=== PATIENT | male | born 2000 | race Asian ===

== ENCOUNTER 2020-06-17 18:58 | Emergency (ER) | payer OTHER ==
[~2020-06-17] VITALS: Ht 185.4 cm; Wt 87.3 kg
[2020-06-17 20:15] VITALS: BP 130/77
[2020-06-17] MEDS ORDERED: TETRACAINE 0.5% OPHTH SOLUTION 4ML BOTTLE. OD ONE (22:00)
[2020-06-17] MEDS ORDERED: FLUORESCEIN OPHTH TEST STRIP. OD ONE (22:00)
[2020-06-17] MEDS ORDERED: ERYT1OIN6 EACHEYE (22:17)
--- NOTE | 2020-06-17 22:17 | PHYS DOC ---
Past Medical History Past Medical History: No Pertinent History Past Surgical History: No Surgical History Smoking Status: Never Smoker Alcohol Use: None General Adult EDM: Chief Complaint: EYE PROBLEMS HPI: HPI: Patient is a 20 year old male who presents to the ED today complaining of chemical burn to the right eye. 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 Patient does not remember the name of the agent. He states his right eye is irritated. Patient is Chukese speaking and interpretation is provided by family. Denies any vision loss. Review of Systems: Review of Systems: Constitutional: Denies fever or chills. [] Eyes: Reports right eye irritation. Denies change in visual acuity. [] Musculoskeletal: Denies back pain or joint pain. [] Integument: Denies rash. [] Neurologic: Denies headache, focal weakness or sensory changes. [] Psychiatric: Denies depression or anxiety. [] Heart Score: Risk Factors: Risk Factors: DM, Current or recent (<one month) smoker, HTN, HLP, family history of CAD, obesity. Risk Scores: Score 0 - 3: 2.5% MACE over next 6 weeks - Discharge Home Score 4 - 6: 20.3% MACE over next 6 weeks - Admit for Clinical Observation Score 7 - 10: 72.7% MACE over next 6 weeks - Early Invasive Strategies Current Medications: Current Medications Medications (Trade) Dose Ordered Sig/Deanna Start Time Stop Time Status Last Admin Dose Admin Fluorescein Sodium (Ful-Felisa) 1 strip 1X ONCE 06/17/20 22:00 06/17/20 22:01 DC 06/17/20 21:57 1 STRIP Tetracaine HCl (Tetracaine) 1 drop 1X ONCE 06/17/20 22:00 06/17/20 22:01 DC 06/17/20 21:57 1 DROP Allergies: Allergies: Allergies Coded Allergies Type Severity Reaction Last Updated Verified No Known Drug Allergies 06/17/20 No Physical Exam: PE: Constitutional: Well developed, well nourished, no acute distress, non-toxic appearance. [] HENT: Normocephalic, atraumatic, bilateral external ears normal, oropharynx moist, no oral exudates, nose normal. [] Eyes: PERRLA, EOMI, right conjunctive is moderately injected, there is clear drainage from the right eye. Inner chambers are normal. Right eye exam under Banerjee lamp. The eye was numbed with tetracaine and stained with fluorescein. No corneal abrasions noted. Skin: Warm, dry, no erythema, no rash. [] Back: No tenderness, no CVA tenderness. [] Extremities: No tenderness, no cyanosis, no clubbing, ROM intact, no edema. [] Neurologic: Alert and oriented X 3, normal motor function, normal sensory function, no focal deficits noted. [] Psychologic: Affect normal, judgement normal, mood normal. [] Current Patient Data: Vital Signs: Vital Signs Date Time Temp Pulse Resp B/P (MAP) Pulse Ox O2 Delivery O2 Flow Rate FiO2 06/17/20 20:15 97.9 52 14 130/77 (94) 97 Room Air 97.9 EKG: EKG: [] Radiology/Procedures: Radiology/Procedures: [] Course & Med Decision Making: Course & Med Decision Making Pertinent Labs and Imaging studies reviewed. (See chart for details) This is a 20-year-old male patient presenting to the ED today complaining of right eye irritation, patient apparently got some cleaning agent into his right eye early this morning at work around 2 AM. He does not know the name of the chemical. Right eye is moderately injected. See eye exam. He was sent home with erythromycin. Follow-up with hog dropper in the course of this week. Mellissa Disclaimer: Mellissa Disclaimer: This electronic medical record was generated, in whole or in part, using a voice recognition dictation system. Departure Departure Impression: Primary Impression: Chemical conjunctivitis of right eye Disposition: HOME, SELF-CARE Condition: STABLE Referrals: NO PCP (PCP) BENEDICT GORE MD follow up in one week Patient Instructions: Conjunctivitis, Chemical Additional Instructions: You have chemical exposure to the right eye. Use the prescribed medication as ordered. Follow-up with the provided hog dropper. Scripts Erythromycin Base (Erythromycin) 1 Gm Oint...g. 0.5 INCH EACHEYE Q4HRS W/A, #1 MISC Apply half an inch to the right eye every 4 hours while awake Prov: TI DONATO APRN 06/17/20 Justicifation of Admission Dx: Justifications for Admission: Justification of Admission Dx: N/A TI DONATO APRN Jun 17, 2020 22:17
== END 2020-06-17 22:21 | disposition home or self-care (01) ==
LOC: ER 18:58
DX: T26.61XA Corrosion of cornea and conjunctival sac, right eye, initial encounter (principal); X58.XXXA Exposure to other specified factors, initial encounter; Y93.89 Activity, other specified; Y92.89 Other specified places as the place of occurrence of the external cause; Y99.8 Other external cause status
CPT/HCPCS: 99283